=== PATIENT | female | born 1990 | race Caucasian/White ===

== ENCOUNTER 2016-10-12 12:23 | Emergency (ER) | payer MEDICAID ==
--- NOTE | 2016-10-12 12:47 | EDPHY ---
HPI/HX/ROS/PE/MDM Narrative: CHIEF COMPLAINT: Sore throat, dyspnea HPI: The patient is a 26-year-old female who complains of approximately 48 hours of sore throat. She states she has "lost her voice" and complains of pain with swallowing but she is able to tolerate food and fluids by mouth. She denies fever. She also describes worsening shortness of breath with exertion. Of note, the triage note mentions abdominal pain, but patient does not complain of this to me. REVIEW OF SYSTEMS: Aside from elements discussed in the HPI, a comprehensive 10-point review of systems was reviewed and is negative. PMH: Includes anxiety, IBS. SOCIAL HISTORY: Denies drug or alcohol abuse. PHYSICAL EXAM: General:Patient is alert, in no acute distress. ENT:Eyes are normal to inspection. Normal voice, no drooling, no stridor. Mild erythema to the tonsils bilaterally. No exudate. Mild tender cervical lymphadenopathy is present bilaterally. Uvula midline. Neck: Normal inspection. Full range of motion. Respiratory:No respiratory distress. Breath sounds normal bilaterally. Cardiovascular: Regular rate and rhythm. Strong peripheral pulses. Normal cap refill. Abdomen:The abdomen is nontender to palpation. There are no peritoneal signs. There are normal bowel sounds. Neuro: Oriented x3. Normal motor function. Normal sensory function. ED Course: Chest x-rays negative for acute pathology. MDM: This is a young healthy patient who complains of sore throat, malaise and mild cough and shortness of breath. Her vital signs are normal. She is not hypoxic. She is not febrile. Her exam is very reassuring. Her rapid strep and chest x -ray results are negative. I do not think antibiotics are indicated. I explained these results to the patient and she is in agreement with the plan for discharge home. - Data Points Imaging Results: Imaging Impressions Chest X-Ray 10/12/16 12:43 Impression: The chest is negative for acute cardiopulmonary abnormality. Imaging: I viewed and interpreted images myself Laboratory Results: 10/12/16 10/12/16 Unknown 12:38 Group A Strep Screen NEGATIVE (NEGATIVE) Group A Strep DNA Pending General Time Seen by Provider: 10/12/16 12:25 Initial Vital Signs: Initial Vital Signs Temperature (C) 37.1 C 10/12/16 12:33 Heart Rate 70 10/12/16 12:33 Respiratory Rate 14 10/12/16 12:33 Blood Pressure 127/66 H 10/12/16 12:33 O2 Sat (%) 97 10/12/16 12:33 O2 Delivery Mode Room Air Allergies/Adverse Reactions: No Known Allergies Allergy (Verified 05/31/14 09:02) Departure - Departure Disposition: Home, Routine, Self-Care Clinical Impression: Acute pharyngitis, Viral syndrome Condition: Good Instructions: Pharyngitis (ED) Additional Instructions: Use ibuprofen and Tylenol as needed for fever and body aches. Follow up with your primary care physician within 72 hours for reevaluation. Drink plenty of fluids. Return to the emergency department immediately for high fever, severe headache or neck pain, difficulty breathing, abdominal pain, rash or other worsening of condition. Referrals: [facility] [Other] - As per Instructions
[2016-10-12 13:08] VITALS: BP 113/78; PULSE 84; RESP 16; TEMP 99; O2SAT 94
== END 2016-10-12 13:04 | disposition home or self-care (01) ==
LOC: CED 12:23
DX: B34.9 Viral infection, unspecified (principal)
CPT/HCPCS: 71020-PO; 87880-PO

== ENCOUNTER → 2017-04-18 | Outpatient (CLI) | payer MEDICAID | LOC: FIMAGING 07:18 | PROVIDERS: ATTEND Advanced Practice Midwife | DX: O09.92 Supervision of high risk pregnancy, unspecified, second trimester (principal); O09.212 Supervision of pregnancy with history of pre-term labor, second trimester; R00.2 Palpitations; Z3A.21 21 weeks gestation of pregnancy ==

== ENCOUNTER 2017-06-17 15:55 | Observation (INO) | payer MEDICAID ==
[2017-06-17] MEDS ORDERED: TERBUTALINE SULFATE 1 MG/ML VIAL SC PRN (16:10)
--- NOTE | 2017-06-17 18:22 | OBPROG ---
Labor Progress Note Assessment/Plan: Assessment: abdomen soft denies regular contractions feeling pressure vaginally denies leaking bleeding feeling positive movement feeling pain when sleeping in pelvis affirm collection with speculum/ closed on visualization amnisure negative ffn collected gbs collected exam closed thick high soft ballotable Plan:abdominal binder to sleep, belt with ambulation. Discussed log rolling in the bed, discussed body mechanics when getting out of the car fu saturday in the office. Discussed reasons to return leaking bleeding cramping decreased movement 06/17/17 18:17 Subjective/Intrapartum Course: 06/17/17 18:16 Comes in with complaint of a few contractions with voiding and having a bowel movement Objective: 06/17/17 16:52 Patient ABO/Rh O POSITIVE 06/17/17 16:52 - Physical Exam General Appearance: WD/WN, alert, no apparent distress Respiratory: chest non-tender, lungs clear, normal breath sounds Cardiac/Chest: regular rate, rhythm Abdomen: normal bowel sounds Extremities: normal range of motion, Gian's sign (negative bilaterally) DTR- Lower Extremities: Knee (R): 2+, Knee (L): 2+ (no clonus) Skin: normal color, warm/dry Neuro/Psych: no motor/sensory deficits, alert, normal mood/affect, oriented x 3 CNM Assessment - Uterine Assessment Uterine Resting Tone: Palpates Soft Oxytocin Orders Assessment - Pre-Induction/Augmentation Assessment Gestational Age: 30 week(s) and 2 day(s) Current Contraction Pattern: Other (Specify) (none noted abdomen soft on palpation) - Heart Rate Pattern Fuentes FHR Baseline (bpm): 135 FHR Pattern Variability: Moderate - Alvarez's Score Dilation: Closed Effacement: 0-30 Station: -3 Cervix: Soft Cervix Position: Anterior Alvarez Score Total: 4 ICD10 Worksheet Patient Problems: Problems Problem Status Onset Delivery normal Acute uterine contractions Acute
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
== END 2017-06-17 18:34 | disposition home or self-care (01) ==
LOC: FLD 15:55
PROVIDERS: ADMIT Obstetrics & Gynecology; ATTEND Obstetrics & Gynecology
DX: O62.9 Abnormality of forces of labor, unspecified (principal); Z3A.30 30 weeks gestation of pregnancy
CPT/HCPCS: 59025; G0378

== ENCOUNTER 2017-07-09 23:11 | Observation (INO) | payer MEDICAID ==
[2017-07-10] MEDS ORDERED: TERBUTALINE SULFATE 1 MG/ML VIAL SC ONE (00:29)
[2017-07-10] MEDS ORDERED: LR 1,000 ML IV SCH (00:30)
[2017-07-10 01:02] LABS: PLATELET COUNT 258 10^3/uL (150-400)
[2017-07-10] MEDS ORDERED: BETAMETHASONE IM SYRINGE IM ONE (01:16)
[2017-07-10] MEDS ORDERED: CALCIUM CARBONATE 500 MG CHEWABLE TAB PO PRN (03:28)
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
[2017-07-10] MEDS ORDERED: SERTRALINE HCL 100 MG TAB PO SCH (09:00)
--- NOTE | 2017-07-10 10:39 | OBPROG ---
Labor Progress Note Assessment/Plan: Assessment: 26 y/o @ 33 4/7 weeks with pre term contractions and cervical change. Plan: Pt will d/c home now to complete her BMZ course tonight. She has strict PTL precautions to return to L and D with increased contractions, LOF or VB. If contractions increase will consider MgSo4 for neural protection. 07/10/17 10:33 Subjective/Intrapartum Course: 07/10/17 10:30 Pt has rested overnight and denies further episodes of contractions. She continues to feel some "wetness" in her vagina but feels it may be urine. She feels good FM, no VB. She would like to d/c home today and return tonight for her second dose of BMZ. Objective: 07/10/17 00:50 - SVE Dilation (cm): 2 Effacement (%): 80 Station: -2 Membranes: Intact - Contraction Pattern Assessment Current Contraction Pattern: Irregular (sporatic no pattern) - FHR Assessment Fuentes FHR (bpm): 140 FHR Pattern Variability: Moderate FHR Category: 1 - AP Antepartum Course: 07/10/17 10:32 H/o PTD x 2, 35 and 36 weeks. Pt is on 17 OH-Progesterone. Oxytocin Orders Assessment - Pre-Induction/Augmentation Assessment Gestational Age: 33 week(s) and 3 day(s) ICD10 Worksheet Patient Problems: Problems Problem Status Onset uterine contractions Acute
[2017-07-10] MEDS ORDERED: ACETAMINOPHEN 500 MG TAB PO ONE (10:42)
== END 2017-07-10 11:45 | disposition home or self-care (01) ==
LOC: FLD 23:11
PROVIDERS: ADMIT Obstetrics & Gynecology; ATTEND Obstetrics & Gynecology
DX: O47.03 False labor before 37 completed weeks of gestation, third trimester (principal); O99.213 Obesity complicating pregnancy, third trimester; Z3A.33 33 weeks gestation of pregnancy; Z68.41 Body mass index [BMI] 40.0-44.9, adult
CPT/HCPCS: G0378; J0702; J3105

== ENCOUNTER 2017-07-11 00:52 | Observation (INO) | payer MEDICAID ==
[2017-07-11] MEDS ORDERED: BETAMETHASONE IM SYRINGE IM ONE (01:45)
--- NOTE | 2017-07-28 14:59 | GDS ---
[f rep st] DISCHARGE SUMMARY HOSPITAL COURSE: Jovita is a 26-year-old who is 32 weeks gestation, with evidence of labor. Patient had been admitted on the evening of the of the , had been evaluated, and received her fir st dose of betamethasone. She was discharged home with labor precautions and instructions to return to Labor and Delivery early in the morning on the for her 2nd dose of betamethasone. She did return for this, had a reactive category 1 nonstress test and no evidence of labor, and she was discharged home. /[id number]/MODL
--- NOTE | 2017-08-03 15:24 | GPROG ---
[f rep st] PROGRESS NOTE This is a dictation on this patient on admission, and this serves as her discharge order. I previous ly dictated her discharge summary. /[id number]/MODL
== END 2017-07-11 02:20 | disposition home or self-care (01) ==
LOC: FLD 00:52
PROVIDERS: ADMIT Obstetrics & Gynecology; ATTEND Obstetrics & Gynecology
DX: O60.03 Preterm labor without delivery, third trimester (principal); Z3A.32 32 weeks gestation of pregnancy
CPT/HCPCS: J0702

== ENCOUNTER 2017-07-17 09:56 | Inpatient (IN) | payer MEDICAID ==
[2017-07-17] MEDS ORDERED: MISOPROSTOL 200 MCG TAB PO PRN (10:25)
[2017-07-17] MEDS ORDERED: TERBUTALINE SULFATE 1 MG/ML VIAL IV PRN (10:25)
[2017-07-17] MEDS ORDERED: OLIVE OIL 118 ML BTL MISC PRN (10:25)
[2017-07-17] MEDS ORDERED: AMMONIA AROMATIC 1 EACH AMP IH PRN (10:25)
[2017-07-17] MEDS ORDERED: LR 1,000 ML IV PRN (10:25)
[2017-07-17] MEDS ORDERED: OXYTOCIN/NORMAL SALINE 1,000 ML IV PRN (10:25)
[2017-07-17] MEDS ORDERED: LIDOCAINE 1% 300 MG/30 ML SDV SC PRN (10:25)
[2017-07-17] MEDS ORDERED: EPSOM SALT 454 GM TP PRN (10:25)
[2017-07-17] MEDS ORDERED: NALOXONE HCL 0.4 MG/ML INJ IVP PRN (11:05)
[2017-07-17] MEDS ORDERED: METOCLOPRAMIDE 10 MG/2 ML VIAL IVP PRN (11:05)
[2017-07-17] MEDS ORDERED: PHENYLEPHRINE HCL 100 MCG/ML SYR IVP PRN (11:05)
[2017-07-17] MEDS ORDERED: ONDANSETRON 4 MG/2 ML VIAL IVP PRN (11:05)
[2017-07-17] MEDS ORDERED: fentaNYL 200 MCG, BUPIVACAINE 0.5% 20 ML in NS 100 ML EP SCH (11:30)
[2017-07-17] MEDS ORDERED: LR 500 ML IV SCH (11:30)
--- NOTE | 2017-07-17 11:31 | PDMN ---
Medical Necessity Medical necessity: Pt meets IP criteria; admit for labor & delivery; per order
[2017-07-17 11:33] LABS: PLATELET COUNT 288 10^3/uL (150-400)
[2017-07-17] MEDS ORDERED: fentaNYL 100 MCG/2 ML INJ ONE (11:37)
[2017-07-17] MEDS ORDERED: LIDOCAINE 1% 300 MG/30 ML SDV ONE (11:43)
[2017-07-17] MEDS ORDERED: MISOPROSTOL 200 MCG TAB ONE (11:44)
[2017-07-17] MEDS ORDERED: AMMONIA AROMATIC 1 EACH AMP IH ONE (11:44)
[2017-07-17] MEDS ORDERED: OLIVE OIL 118 ML BTL ONE (11:44)
[2017-07-17] MEDS ORDERED: OXYTOCIN 10 UNIT/ML VIAL ONE (11:44)
[2017-07-17] MEDS ORDERED: TERBUTALINE SULFATE 1 MG/ML VIAL ONE (11:44)
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
[2017-07-17] MEDS: IBUPROFEN 600 MG TAB PO PRN ×2 (12:12→18:21)
[2017-07-17] MEDS ORDERED: ACETAMINOPHEN 325 MG TAB PO PRN (12:30)
[2017-07-17] MEDS ORDERED: SIMETHICONE 80 MG TAB CHEW PO PRN (12:30)
[2017-07-17] MEDS ORDERED: HYDROCORTISONE 0.5% CREAM TP PRN (12:30)
[2017-07-17] MEDS: DOCUSATE SODIUM 100 MG CAP PO PRN (12:30)
--- NOTE | 2017-07-17 12:42 | OBDEL ---
Info Type: Vaginal Presentation at Delivery: Vertex L&D Analgesia/Anesthesia Type: None GBS+: No Intrapartum Medications: Generic Name Dose Route Start Last Admin Trade Name Freq PRN Reason Stop Dose Admin Oxytocin/Sodium Chloride 1,000 mls @ 0 mls/hr 07/17/17 10:25 07/17/17 12:10 Pitocin 20 Units/Ns (Premix) IV 1,000 mls PRN PRN Administration Post- bleeding As Directed Ibuprofen 600 mg 07/17/17 10:25 07/17/17 12:12 Motrin PO 01/13/18 10:24 600 mg Q6HRS PRN Administration post , inflammation - Care Provider Asw/Asuw Tactical Air Controller/HR OPERATIONS ADVISOR: Yudith No - Hospital Course Intrapartum: 07/17/17 12:38 Arrived to hospital shortly after SROM, saira, progressed rapidly. Vaginal Delivery - Delivery Provider Delivery Physician/CNM: Rylie Douglass - Labor and Delivery Onset of Contractions Date: 07/17/17 Onset of Contractions Time: 09:30 Onset of Contractions Type: Spontaneous Rupture of Membranes Date: 07/17/17 Rupture of Membranes Time: 08:30 Rupture of Membranes Type: Spontaneous Amniotic Fluid Color: Clear Dilation Complete Date: 07/17/17 Dilation Complete Time: 11:39 Placenta Delivery Date: 07/17/17 Placenta Delivery Time: 11:53 Total Hours of Labor: 2 Vaginal Sponge Count Correct: Yes Vaginal Needle Count Correct: Yes Vaginal Sweep Performed: Yes EBL: 300 Delivery Events: None Delivery Comment: uncomplicated . HR OPERATIONS ADVISOR in attendance. Baby to maternal abdomen, 1 min delay of cord clamping. Baby eventually taken to NICU. - Medications Labor Augmentation/Induction Methods Used: None [place] Data CRISTEL: 08/24/17 Gestational Age: 34 week(s) and 4 day(s) Fuentes Delivery Date: 07/17/17 Delivery Time: 11:49 Sex of Infant: Female Weight (gm): 2574 g ICD10 Worksheet Patient Problems: Problems Problem Status Onset delivery Acute uterine contractions Acute - ICD10 Problem Qualifiers (1) delivery (2) uterine contractions
[2017-07-17] MEDS ORDERED: HYDROCODONE/APAP 5/325 TAB PO PRN (22:15)
[2017-07-17] MEDS: SERTRALINE HCL 100 MG TAB PO SCH (22:35)
[2017-07-18] MEDS: IBUPROFEN 600 MG TAB PO PRN ×4 (03:10→21:52)
[2017-07-18] MEDS: DOCUSATE SODIUM 100 MG CAP PO PRN ×2 (09:44→20:47)
[2017-07-18] MEDS: SERTRALINE HCL 100 MG TAB PO SCH (11:00)
[2017-07-18] MEDS ORDERED: SUCROSE 1 EA UDL ONE (12:19)
[2017-07-18] MEDS ORDERED: SERTRALINE HCL 100 MG TAB PO SCH (20:00)
--- NOTE | 2017-07-18 20:21 | OBPP ---
Progress Note Assessment/Plan: Assessment: 26yo s/p PTD () PPD#1 pumping baby in NICU Plan: routine PP care cont to pump support PRN anticipate d/c tomorrow, will go to boarder Subjective/ Course: 07/18/17 20:21 pt doing well, she is feeling good. She denies any heavy bleeding or pain. She is pumping, as baby in NICU. She is ambulating and voiding without difficulty. Objective: 07/18/17 04:36 Patient ABO/Rh O POSITIVE 07/17/17 10:45 Temp Pulse Resp BP Pulse Ox 36.7 C 81 17 115/75 93 07/18/17 08:00 07/18/17 08:00 07/18/17 08:00 07/18/17 08:00 07/18/17 08:00 Uterine Position/Fundal Height: Umbilicus -2, Midline Uterine Tone: Firm
[2017-07-19] MEDS: IBUPROFEN 600 MG TAB PO PRN ×2 (03:35→09:33)
[2017-07-19 07:51] VITALS: BP 114/74
[2017-07-19] MEDS: DOCUSATE SODIUM 100 MG CAP PO PRN (09:33)
[2017-07-19] MEDS ORDERED: IRON POLYSAC/IRON HEME 28 MG TAB PO SCH (10:15)
--- NOTE | 2017-07-19 13:54 | OBPP ---
Progress Note Assessment/Plan: Assessment: PPD 2 s/p - anemia Plan: D/C to boarder status 07/19/17 13:51 Subjective/ Course: 07/18/17 20:21 pt doing well, she is feeling good. She denies any heavy bleeding or pain. She is pumping, as baby in NICU. She is ambulating and voiding without difficulty. 07/19/17 13:52 Pt doing well. 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 urinating fine. using pump and trying to set up renting pump for home. Baby has latched a couple times. anxious to see other kids and go to boarder status Objective: 07/18/17 04:36 Patient ABO/Rh O POSITIVE 07/17/17 10:45 Temp Pulse Resp BP Pulse Ox 36.4 C 78 18 114/74 94 07/19/17 07:30 07/19/17 07:30 07/19/17 07:30 07/19/17 07:30 07/19/17 07:30 Uterine Position/Fundal Height: Umbilicus -1 Uterine Tone: Firm Physical Exam - Physical Exam Abdomen: non-tender, soft, other (normal lochia) Extremities: non-tender, pedal edema (mild) Skin: normal color, warm/dry Neuro/Psych: alert, normal mood/affect
--- NOTE | 2017-07-19 13:57 | OBGCSDC ---
General Delivery Information - General Info : 6 Para: 4 Abortions: 2 Type: Vaginal L&D Analgesia/Anesthesia Type: None Admission Date: 07/17/17 Labs: Patient ABO/Rh O POSITIVE 07/17/17 10:45 Hct 31.3 % (38.0-47.0) L 07/18/17 04:36 - Hospital Course Intrapartum: 07/17/17 12:38 Arrived to hospital shortly after SROM, saira, progressed rapidly. : 07/18/17 20:21 pt doing well, she is feeling good. She denies any heavy bleeding or pain. She is pumping, as baby in NICU. She is ambulating and voiding without difficulty. 07/19/17 13:52 Pt doing well. 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 urinating fine. using pump and trying to set up renting pump for home. Baby has latched a couple times. anxious to see other kids and go to boarder status Vaginal - Delivery Provider Delivery Physician/CNM: Ryile Douglass - Diagnosis Labor: Spontaneous Rupture of Membranes Type: Spontaneous Amniotic Fluid Color: Clear Delivery Events: None - Delivery EBL: 300 Data CRISTEL: 08/24/17 Gestational Age: 34 week(s) and 6 day(s) Fuentes Delivery Date: 07/17/17 Delivery Time: 11:49 Sex of : Female Weight (gm): 2574 g Score (1 Min): 8 Score (5 Min): 9 Discharge Information - Discharge Information Condition: Good Instruction/Follow Up: See Instruction Sheet, Four Weeks (3-4 with erik), Six Weeks (with Rafat)
== END 2017-07-19 15:00 | disposition home or self-care (01) | DRG 560 ==
LOC: FLD 09:56 → FOB 12:00
PROVIDERS: ADMIT Hospitalist; ATTEND Hospitalist
PROC: 10E0XZZ Delivery of Products of Conception, External Approach (ICD-10-PCS; principal; 2017-07-17)
DX: O60.14X0 Preterm labor third trimester with preterm delivery third trimester, not applicable or unspecified (principal); O99.344 Other mental disorders complicating childbirth; F32.9 Major depressive disorder, single episode, unspecified; Z37.0 Single live birth; Z3A.34 34 weeks gestation of pregnancy; O99.214 Obesity complicating childbirth; Z68.36 Body mass index [BMI] 36.0-36.9, adult
CPT/HCPCS: J2370; J2590; J3010; J3105

== ENCOUNTER 2017-10-03 05:40 | Day surgery (SDC) | payer MEDICAID ==
[2017-10-03] MEDS ORDERED: LR 1,000 ML IV SCH (06:00)
[2017-10-03] MEDS ORDERED: LR 1,000 ML IV ONE (06:02)
[2017-10-03 06:28] LABS: PLATELET COUNT 342 10^3/uL (150-400)
[2017-10-03] MEDS ORDERED: MIDAZOLAM 2 MG/2 ML VIAL IVP ONE (06:51)
--- NOTE | 2017-10-03 06:51 | PDANEPAE ---
ANE History of Present Illness Salpingectomy ANE Past Medical History - Cardiovascular History Hx Hypertension: No Hx Arrhythmias: No Hx Chest Pain: No Hx Coronary Artery / Peripheral Vascular Disease: No Hx CHF / Valvular Disease: No Hx Palpitations: Yes Cardiovascular History Comment: was seen at [facility] during and worked up d/t palpitations - Pulmonary History Hx COPD: No Hx Asthma/Reactive Airway Disease: No Hx Recent Upper Respiratory Infection: No Hx Oxygen in Use at Home: No Hx Sleep Apnea: No Sleep Apnea Screening Result - Last Documented: Negative - Neurologic History Hx Cerebrovascular Accident: No Hx Seizures: No Hx Dementia: No - Endocrine History Hx Diabetes: No - Renal History Hx Renal Disorders: No Renal History Comment: possible bladder infection currently- urine pending currently - Liver History Hx Hepatic Disorders: No - Neurological & Psychiatric Hx Hx Neurological and Psychiatric Disorders: Yes Neurological / Psychiatric History Comment: anxiety. depression - Cancer History Hx Cancer: No - Congenital Disorder History Hx Congenital Disorders: No - GI History Hx Gastrointestinal Disorders: Yes Gastrointestinal History Comment: chronic constipation - Other Health History Other Health History: wears glasses. currently . eczema on left hand currently - Chronic Pain History Chronic Pain: No - Surgical History Prior Surgeries: tonsillectomy 2014 ANE Review of Systems Review of Systems: - Exercise capacity METS (RN): 3 METS ANE Patient History - Allergies Allergies/Adverse Reactions: No Known Allergies Allergy (Verified 05/31/14 09:02) - Home Medications Home Medications: Probiotic 09/26/17 [Last Taken 3 Days Ago ~09/30/17] - NPO status NPO Since - Liquids (Date): 10/03/17 NPO Since - Liquids (Time): 05:15 NPO Since - Solids (Date): 10/02/17 NPO Since - Solids (Time): 20:00 - Smoking Hx Smoking Status: Never smoked - Family Anes Hx Family Hx Anesthesia Complications: mother after not waking up from anesthesia ANE Labs/Vital Signs - Labs Result Diagrams: 10/03/17 06:15 - Vital Signs Blood Pressure: 110/74 Heart Rate: 84 Respiratory Rate: 16 O2 Sat (%): 94 Height: 162.56 cm Weight: 100.244 kg ANE Physical Exam - Airway Neck exam: FROM Mallampati Score: Class 2 - Pulmonary Pulmonary: clear to auscultation - Cardiovascular Cardiovascular: regular rate and rhythym - ASA Status ASA Status: I ANE Anesthesia Plan Anesthesia Plan: general endotracheal anesthesia
[2017-10-03] MEDS ORDERED: HYDROCODONE/APAP 5/325 TAB PO PRN (06:52)
[2017-10-03] MEDS ORDERED: ALBUTEROL 3 ML DEYVIAL IH PRN (06:52)
[2017-10-03] MEDS ORDERED: NALOXONE HCL 0.4 MG/ML INJ IVP PRN (06:52)
[2017-10-03] MEDS ORDERED: HYDROmorphONE/DILAUDID 1 MG/ML INJ IVP PRN (06:52)
[2017-10-03] MEDS ORDERED: DEXAMETHASONE 4 MG/ML VIAL IVP PRN (06:52)
[2017-10-03] MEDS ORDERED: ONDANSETRON 4 MG/2 ML VIAL IVP PRN (06:52)
[2017-10-03] MEDS ORDERED: BUPIVACAINE 0.25% 30 ML SDV ONE (06:53)
[2017-10-03] MEDS ORDERED: EPINEPHrine 1 MG/ML INJ ONE (06:54)
[2017-10-03] MEDS ORDERED: PROPOFOL 200 MG/20 ML VIAL ONE (06:55)
[2017-10-03] MEDS ORDERED: fentaNYL 100 MCG/2 ML INJ ONE ×3 (06:57→08:53)
[2017-10-03] MEDS ORDERED: ONDANSETRON 4 MG/2 ML VIAL ONE ×2 (06:58→10:09)
[2017-10-03] MEDS ORDERED: ROCURONIUM 50 MG/5 ML VIAL ONE (06:58)
[2017-10-03] MEDS ORDERED: DEXAMETHASONE 4 MG/ML VIAL ONE (06:58)
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
[2017-10-03] MEDS ORDERED: MIDAZOLAM 2 MG/2 ML VIAL ONE (07:19)
[2017-10-03] MEDS: SILVER NITRATE APPLICATOR 1 APPL TP ONE ×2 (08:03→08:20)
[2017-10-03] MEDS ORDERED: SUGAMMADEX SODIUM 200 MG/2 ML VIAL IVP ONE (08:18)
--- NOTE | 2017-10-03 08:39 | POSTANESTH ---
Post Anesthetic Evaluation Cardiovascular Status: Normal, Stable Respiratory Status: Normal, Stable Level of Consciousness/Mental Status: Can Participate in Eval, Mildly Sleepy, Arousable Pain Control: Adequate, Prn Tx Ordered Nausea/Vomiting Control: Adequate, Prn Tx Ordered Complications Possibly Related to Anesthesia: None Noted
--- NOTE | 2017-10-03 08:44 | POSTOPPROG ---
Post Op Note Date of Operation: 10/03/17 Surgeon: Rylie Douglass [employer]: Riley Khalil Anesthesiologist: Juan Miguel Joe Anesthesia: GET(General Endotracheal) Pre-op Diagnosis: undesired fertility, desired oncoreduction Post-op Diagnosis: same Indication: 27 year old wtih undesired fertility, and desired oncoreduction Procedure: laparoscopic bilateral salpingectomy Findings: normal appearing uterus, tubes and ovaries Inf/Abcess present in the surg proc area at time of surgery?: No EBL: Minimal Total fluids administered: 800 ml Complications: none Specimen(s): bilateral Fallopian tubes
[2017-10-03] MEDS ORDERED: IBUPROFEN 600 MG TAB PO PRN (08:54)
[2017-10-03] MEDS: fentaNYL 100 MCG/2 ML INJ IVP PRN ×2 (08:54→09:04)
[2017-10-03] MEDS ORDERED: oxyCODONE IR 5 MG TAB PO PRN (08:54)
[2017-10-03] MEDS ORDERED: IBUPROFEN 800 MG TAB PO ONE (10:13)
[2017-10-03] MEDS ORDERED: IBUPROFEN 200 MG TAB PO ONE (10:14)
[2017-10-03 12:01] VITALS: BP 106/69
--- NOTE | 2017-10-03 14:30 | GOP ---
[f rep st] OPERATIVE REPORT DATE OF OPERATION: 10/03/2017 SURGEON: Rylie Douglass MD VET ASSISTANT: MAGALY Ashton ANESTHESIOLOGIST: Juan Miguel Joe DO PREOPERATIVE DIAGNOSIS: Undesired fertility and desired ovarian onco-reduction. POSTOPERATIVE DIAGNOSIS: Undesired fertility and desired ovarian onco- reduction. PROCEDURE PERFORMED: Laparoscopic bilateral salpingo-oophorectomy. FINDINGS: Normal appearing uterus, tubes, and ovaries. SPECIMENS: Bilateral fallopian tubes. IV FLUIDS: 800 cc crystalloid. COMPLICATIONS: None. ESTIMATED BLOOD LOSS: 30 cc. INDICATIONS: A 27-year-old 4, para 4 with undesired fertility and desired ovarian onco-reduction. She is approximately 10 weeks , and is in a manager terminal relationship. She understands due to her young age, there is a significant risk of regret, but is solid in her decision to proceed. DESCRIPTION OF PROCEDURE: Written informed consent was reviewed with the patient in the preoperative area. She was taken to the operating room and placed in the dorsal supine position. Time-out was performed. When general anesthesia was deemed adequate, she was placed in the dorsal lithotomy position using the [place] stirrups. She had voided immediately prior to arriving in the operating room. Her abdominal and vagina prepared and draped in sterile fashion. Speculum was inserted into her vagina. Tenaculum was placed on the cervix. The [place] cannula was inserted into the cervix and fastened to the tenaculum. Speculum was removed from the vagina. Gloves were changed and attention was turned to the abdomen. 0.25% Marcaine with epinephrine was infiltrated into the infraumbilical area. An incision was made. A 5 mm trocar was inserted under direct visualization. The short one was not sufficient, so we changed to the long trocar. It was inserted under direct visualization and this confirmed entrance into the peritoneum. The abdomen was then insufflated. Local anesthetic was infiltrated into the right and left lower quadrants and trocars were inserted in similar fashion in those quadrants, under direct visualization. A 5 mm trocar was used at each site. Patient was placed in Trendelenburg. A combination of graspers and probes were used to identify the tubes to the fimbriated ends. The right tube was grasped and elevated and the LigaSure was used to clamp, cauterize, and cut along the mesosalpinx directly adjacent to the tube. The tube was then excised just distal to the cornu. It was removed from the abdomen. This was repeated on the left side in similar fashion. The left tube was actually removed in 2 separate pieces as the fimbriated end was in the way of visualization. Irrigation and suction were performed and hemostasis of the operative sites was confirmed. Pressure was removed from the abdomen and the operative sites were still observed to be hemostatic. The trocars were removed under direct visualization. The abdomen was desufflated, and the final trocar was removed under direct visualization. The skin was closed with 4-0 Monocryl in a subcuticular fashion. The incisions were then covered with Steri-Strips. Sponge, lap, and needle counts were correct x2. The instruments were removed from the vagina. The cervix was noted to be oozing at the tenaculum sites. Direct pressure and silver nitrate were used to obtain hemostasis. The instruments were then again removed from the vagina. She was extubated in the operating room and taken to the recovery room in stable condition. /[id number]/MODL MTDD
== END 2017-10-03 11:47 | disposition home or self-care (01) ==
LOC: FSGY 05:40
PROVIDERS: ATTEND Hospitalist
PROC: 0UT74ZZ Resection of Bilateral Fallopian Tubes, Percutaneous Endoscopic Approach (ICD-10-PCS; principal; 2017-10-03 07:15)
DX: Z30.2 Encounter for sterilization (principal)
CPT/HCPCS: J0171; J0696; J1100; J2250; J2405; J2704; J3010